=== PATIENT | female | born 1955 | race Caucasian/White ===

== ENCOUNTER 2017-01-02 10:52 | Outpatient (RCR) | payer BC | END 2017-04-02 | disposition home or self-care (01) | LOC: CARD 10:52 | PROVIDERS: ATTEND Nurse Practitioner Family | DX: R01.1 Cardiac murmur, unspecified (principal); R00.2 Palpitations | CPT/HCPCS: 93225; 93226 ==

== ENCOUNTER → 2017-01-02 | Outpatient (CLI) | payer BC ==
[~2017-01-02] MED LIST: CA C1TAB26 PO; CALC1CAP21 PO; CYAN500T2 PO; HYDR-3454 PO; LISI20TA PO; OMEG-12 PO
--- NOTE | 2017-01-03 12:31 | ECHOCARDIOGRAPHY REPORT ---
DATE OF SERVICE: 01/02/2017 REFERRING PHYSICIAN: Dr. Delmi Antonio, [facility] MEASUREMENT: LV end diastolic 3.7. IVS thickness 1.2. LVPW thickness 1.1. Left atrial diameter 3.2. Ejection fraction 70%. FINDINGS: 1. Technical quality is good. 2. The left ventricle is normal in size with mild left ventricular hypertrophy noted diffusely, hyperactive ventricle, estimated ejection fraction 70%. Diastolic dysfunction is suggested by Doppler. 3. The left atrium is normal in size. No clot or thrombus were seen within the left atrium. 4. The right atrium and right ventricle are normal in size. No clot or thrombus were seen within the right side. 5. Mitral valve is normal in morphology with mild mitral regurgitation noted by color Doppler flow. No mitral valve prolapse. No mitral valve stenosis. 6. Aortic valve is calcified, Doppler across the aortic valve estimated the peak gradient across the aortic valve of 15 mmHg, mean gradient of 7.2 mmHg, calculated valve area of 2.6 square cm, no significant aortic valve stenosis was noted. No significant aortic regurgitation. 7. Tricuspid valve is normal in morphology with mild tricuspid regurgitation noted by color Doppler flow. Doppler across the tricuspid valve estimated pulmonary artery pressure of 10+ right atrial pressure. 8. Pulmonic valve is functioning normally. 9. No pericardial effusion. CONCLUSION: 1. Mild left ventricular hypertrophy noted diffusely with hyperactive ventricle, estimated ejection fraction 70%, diastolic dysfunction is suggested by Doppler. 2. Aortic valve sclerosis, no aortic stenosis. 3. Mild mitral and tricuspid regurgitation. 4. Estimated pulmonary artery pressure of 15 to 20 mmHg. Job ID: [id number] DocumentID: [id number] Dictated Date: 01/03/2017 08:05:48 Blender Snuff Date: 01/03/2017 08:57:28 Dictated By: GOPAL BRODERICK MD
== END ==
LOC: CARD 10:48
PROVIDERS: ATTEND Nurse Practitioner Family
DX: R01.1 Cardiac murmur, unspecified (principal); R00.2 Palpitations; I08.3 Combined rheumatic disorders of mitral, aortic and tricuspid valves
CPT/HCPCS: 93306

== ENCOUNTER → 2017-01-06 | Outpatient (CLI) | payer BC ==
--- NOTE | 2017-01-06 10:34 | Diagnostic Imaging Report ---
EXAMINATION: Upper and lower extremity pressure measurements of ankle/brachial index and pulse volume recording at the ankle. INDICATION: Claudication FINDINGS: The ankle/brachial index on the right side is 1.1, (1.1 DP, and 1.1 PT) and on the left is 1.2 (1.2 DP, and 1.1 PT). Pulse volume recording waveforms demonstrate no significant dampening. IMPRESSION: Normal IAN, bilaterally. Dictated by: Dictated on workstation # [id number]
== END ==
LOC: RAD 09:33
PROVIDERS: ATTEND Nurse Practitioner Family
DX: I87.2 Venous insufficiency (chronic) (peripheral) (principal); R01.1 Cardiac murmur, unspecified
CPT/HCPCS: 93922

== ENCOUNTER 2017-05-10 12:09 | Emergency (ER) | payer BC ==
[~2017-05-10] VITALS: Ht 157.5 cm; Wt 81.6 kg
--- OUTSIDE RECORDS SUMMARY | 2017-05-10 12:15 | XMS REPORT ---
Author Author KAYLEE MURNOE Organization [employer] Address Unknown Phone Unavailable Care Team Providers Care Certified Medical Technician Name Role Phone KAYLEE MUNROE CP Unavailable Allergies No Known Allergies Problems Problem Type Condition Code Onset Dates Condition Status Problem Dental caries K02.9 Active Problem Family history of cancer Z80.9 Active Problem Mouth pain K13.79 Active Problem Knee pain, left M25.562 Active Problem Lumbago with sciatica, right side M54.41 Active Problem Apnea, not elsewhere classified R06.81 Active Problem Lumbago with sciatica, left side M54.42 Active Problem Right upper quadrant pain R10.11 Active Problem Family history of diabetes mellitus Z83.3 Active Problem Gastro-esophageal reflux disease without esophagitis K21.9 Active Problem Fall, initial encounter W19.XXXA Active Medications No Known Medications Results No Known Results Summary Purpose [employer] Submission
--- OUTSIDE RECORDS SUMMARY | 2017-05-10 12:15 | XMS REPORT ---
Author Author KAYLEE MUNROE Organization [employer] Address Unknown Phone Unavailable Care Team Providers Care Sneller Hand Name Role Phone KAYLEE MUNROE CP Unavailable Allergies, Adverse Reactions, Alerts Substance Reaction Event Type Sulfamethoxazole-Trimethoprim Info Not Available Drug Allergy Problems Problem Type Condition Code Onset Dates Condition Status Assessment Gastro-esophageal reflux disease without esophagitis K21.9 Active Problem Dental caries K02.9 Active Problem Knee pain, left M25.562 Active Assessment Right upper quadrant pain R10.11 Active Assessment Fall, initial encounter W19.XXXA Active Problem Gastro-esophageal reflux disease without esophagitis K21.9 Active Problem Fall, initial encounter W19.XXXA Active Problem Apnea, not elsewhere classified R06.81 Active Problem Family history of cancer Z80.9 Active Problem Mouth pain K13.79 Active Problem Right upper quadrant pain R10.11 Active Problem Family history of diabetes mellitus Z83.3 Active Medications Medication Code System Code Instructions Start Date End Date Status Dosage Hydrocodone-Acetaminophen [facility] [address]-00 5-325 MG Orally Once a day Apr 19, 2016 Apr 24, 2016 1 tablet as needed Omeprazole [facility] [address]-78 20 mg Orally Once a day Apr 19, 2016 1 capsules Aspir-81 [facility] [address]-00 81 MG Orally Once a day 1 tablet Hair/Skin/Nails [facility] [address] Orally not defined Multi Complete [facility] [address] Orally not defined MetFORMIN HCl ER [facility] 88024822613 500 MG Orally twice a day 1 tablet with meal Calcium + D [facility] [address] 315-200 MG-UNIT Orally Twice a day 1 tablet with meals PredniSONE [facility] [address]-99 20 mg Orally Once a day Apr 19, 2016Apr 1 tablet Vitamin D [facility] [address]-53 1000 UNIT Orally Once a day 5 tablet Procedures Procedure Coding System Code Date Office Visit, Est Pt., Level 3 CPT-4 36262 Apr 19, 2016 X-RAY EXAM OF LOWER SPINE CPT-4 48982 Apr 19, 2016 Vital Signs Date/Time: Apr 19, 2016 Cardiac Monitoring Heart Rate 82 bpm Weight 192.0 lbs Height 62 in BMI 35.11 Index Blood Pressure Diastolic 90 mmHg Blood Pressure Systolic 142 mmHg Results No Known Results Summary Purpose [employer] Submission
--- OUTSIDE RECORDS SUMMARY | 2017-05-10 12:15 | XMS REPORT ---
Author Author MUNROEKAYLEE Melendrez Organization [facility] Address [address] [place] [address] Care Team Providers Care Office Services Manager Name Role Phone MUNROEKAYLEE Melendrez Unavailable PROBLEMS Type Condition ICD9-CM Code GOC29-LT Code Onset Dates Condition Status SNOMED Code Problem Gastroesophageal reflux disease without esophagitis K21.9 Active 915537475 Problem Hyperinsulinemia E16.1 Active 28567664 Problem Acute left-sided low back pain with left-sided sciatica M54.42 Active 286639878 Problem Type 2 diabetes mellitus without complication, without long-term current use of insulin E11.9 Active 041148028 Problem Venous stasis dermatitis of both lower extremities I87.2 Active 19072099 Problem Murmur, cardiac R01.1 Active 90795275 Problem Elevated blood pressure reading without diagnosis of hypertension R03.0 Active 209783304 Problem Claudication I73.9 Active 032195943 Problem Palpitations R00.2 Active 13847285 Problem Mild left ventricular hypertrophy I51.7 Active 45694815 Problem Aortic valve sclerosis I35.8 Active 87320199 Problem Mild mitral regurgitation I34.0 Active 02006852 Problem Mild tricuspid regurgitation I07.1 Active 572780715 Problem Gastro-esophageal reflux disease without esophagitis K21.9 Active 132662554 Problem Apnea, not elsewhere classified R06.81 Active 6438055 Problem Knee pain, left M25.562 Active 22451020 Problem Lumbago with sciatica, left side M54.42 Active 958993713 Problem Dental caries K02.9 Active 82886148 Problem Lumbago with sciatica, right side M54.41 Active 570376092 ALLERGIES Substance Reaction Event Type Date Status Sulfamethoxazole-Trimethoprim Unknown Drug Allergy Aug, Active SOCIAL HISTORY No smoking Hx information available PLAN OF CARE Activity Details Follow Up 3 Months, prn Reason:CHM VITAL SIGNS Height 62 in 2016-09-05 Weight 191.7 lbs 2016-09-05 Temperature 97.6 degrees Fahrenheit 2016-09-05 Heart Rate 90 bpm 2016-09-05 Respiratory Rate 22 2016-09-05 BMI 35.06 kg/m2 2016-09-05 Blood pressure systolic 137 mmHg 2016-09-05 Blood pressure diastolic 91 mmHg 2016-09-05 MEDICATIONS Medication Instructions Dosage Frequency Start Date End Date Duration Status PredniSONE 10 mg Orally Once a day 1 tablet 24h Aug, Aug, 05 days Active Hair/Skin/Nails Active Multi Complete Active Vitamin D 1000 UNIT Orally Once a day 5 tablet 24h Active Aspir-81 81 MG Orally Once a day 1 tablet 24h Active Hydrocodone-Acetaminophen 5-325 MG Orally every 6 hrs PRN 1 tablet as needed May, Aug, 10 days Active Baclofen 10 mg Orally Three times a day 1 tablet with food or milk 8h May, 90 days Active Calcium + D 315-200 MG-UNIT Orally Twice a day 1 tablet with meals 12h Active Omeprazole 20 mg Orally Once a day 1 capsules 24h 90 days Active Azithromycin 250 MG Orally Once a day 2 tablets on the first day, then 1 tablet daily for 4 days 24h Aug, Aug, 5 day(s) Active RESULTS Name Result Date Reference Range A1C (IN HOUSE) 2016-09-05 A1C IN HOUSE 5.6 4.3 - 5.6 % Previous A1c 6.4 Lot [id number] Exp date 06/2018 PROCEDURES Procedure Date Ordered Related Diagnosis Body Site GLYCATED HEMOGLOBIN TEST Sep 05, 2016 Office Visit, Est Pt., Level 4 Sep 05, 2016 IMMUNIZATIONS No Known Immunizations
--- OUTSIDE RECORDS SUMMARY | 2017-05-10 12:15 | XMS REPORT ---
Author Author KAYLEE MUNROE Organization [facility] Address [address] [place] [address] Care Team Providers Care Design Painter Name Role Phone KAYLEE MUNROE Unavailable PROBLEMS Type Condition ICD9-CM Code WVW88-BC Code Onset Dates Condition Status SNOMED Code Problem Knee pain, left M25.562 Active 84177151 Problem Mouth pain K13.79 Active 230658676 Problem Dental caries K02.9 Active 29657179 Problem Apnea, not elsewhere classified R06.81 Active 4644822 Problem Gastro-esophageal reflux disease without esophagitis K21.9 Active 916798531 Problem Family history of diabetes mellitus Z83.3 Active 310891483 Problem Family history of cancer Z80.9 Active 540074499 Problem Fall, initial encounter W19.XXXA Active 2633972 Problem Right upper quadrant pain R10.11 Active 103136205 ALLERGIES Unknown Allergies SOCIAL HISTORY No smoking Hx information available PLAN OF CARE VITAL SIGNS MEDICATIONS Unknown Medications RESULTS No Results PROCEDURES No Known procedures IMMUNIZATIONS No Known Immunizations
--- OUTSIDE RECORDS SUMMARY | 2017-05-10 12:15 | XMS REPORT ---
Author Author KAYLEE MUNROE Organization [employer] Address Unknown Phone Unavailable Care Team Providers Care Heater Installer Name Role Phone KAYLEE MUNROE CP Unavailable Allergies, Adverse Reactions, Alerts Substance Reaction Event Type Sulfamethoxazole-Trimethoprim Info Not Available Drug Allergy Problems Problem Type Condition Code Onset Dates Condition Status Problem Dental caries K02.9 Active Problem Family history of cancer Z80.9 Active Problem Mouth pain K13.79 Active Problem Lumbago with sciatica, right side M54.41 Active Problem Apnea, not elsewhere classified R06.81 Active Problem Lumbago with sciatica, left side M54.42 Active Problem Right upper quadrant pain R10.11 Active Problem Family history of diabetes mellitus Z83.3 Active Problem Gastro-esophageal reflux disease without esophagitis K21.9 Active Problem Fall, initial encounter W19.XXXA Active Assessment Lumbago with sciatica, right side M54.41 Active Assessment Lumbago with sciatica, left side M54.42 Active Problem Knee pain, left M25.562 Active Medications Medication Code System Code Instructions Start Date End Date Status Dosage Aspir-81 [facility] [address]-68 81 MG Orally Once a day 1 tablet Hydrocodone-Acetaminophen [facility] [address]-86 5-325 MG Orally every 6 hrs PRN May 23, 2016 Jun 02, 2016 1 tablet as needed Omeprazole [facility] 48808800291 20 mg Orally Once a day 1 capsules MetFORMIN HCl ER [facility] 99491142848 500 MG Orally twice a day 1 tablet with meal Calcium + D [facility] 520[address] 315-200 MG-UNIT Orally Twice a day 1 tablet with meals Baclofen [facility] [address]-28 10 mg Orally Three times a day May 23, 2016 Jun 22, 2016 1 tablet with food or milk Hair/Skin/Nails [facility] [address]35-[address] Orally not defined Multi Complete [facility] [address] Orally not defined Vitamin D [facility] [address]-92 1000 UNIT Orally Once a day 5 tablet Procedures Procedure Coding System Code Date Office Visit, Est Pt., Level 3 CPT-4 35190 May 23, 2016 Vital Signs Date/Time: May 23, 2016 Cardiac Monitoring Heart Rate 84 bpm Weight 194.6 lbs Height 62 in BMI 35.59 Index Blood Pressure Diastolic 85 mmHg Blood Pressure Systolic 138 mmHg Results No Known Results Summary Purpose [employer] Submission
--- OUTSIDE RECORDS SUMMARY | 2017-05-10 12:15 | XMS REPORT ---
Author Author KAYLEE MUNROE Organization [employer] Address Unknown Phone Unavailable Care Team Providers Care Automotive Shop Foreman Name Role Phone KAYLEE MUNROE CP Unavailable [...] Problem Fall, initial encounter W19.XXXA Active Medications Medication Code System Code Instructions Start Date End Date Status Dosage MetFORMIN HCl ER [facility] 04379203128 500 MG Orally twice a day 1 tablet with meal Omeprazole [facility] 00702030967 20 mg Orally Once a day 1 capsules Results No Known Results Summary Purpose [employer] Submission
[2017-05-10] MEDS ORDERED: OMEP20CA12 (13:19)
[2017-05-10] MEDS ORDERED: PRD20T (13:19)
[2017-05-10] MEDS ORDERED: JANUVIA (13:19)
[2017-05-10] MEDS ORDERED: METF500T4 (13:19)
[2017-05-10] MEDS ORDERED: LISI-556 (13:19)
[2017-05-10] MEDS ORDERED: HYDR-3816 (13:19)
--- NOTE | 2017-05-10 13:26 | ED Neurological Problem ---
General Chief Complaint: Dizziness/Syncope Stated Complaint: DIZZY, NASUEA Nursing Triage Note: ARRIVED VIA AMB TO ROOM 05 WITH A UNSTEADY GAIT. COMPLAINS OF DIZZINESS STARTING YESTERDAY AFTER WORK. STATES SHE HAS BEEN INC OF URINE X1 TODAY. WENT TO [facility] THIS AM WHO PRESCRIBED HER PREDNISONE AND MECLAZINE WHICH SHE HAS NOT FILLED YET. Nursing Sepsis Screen: No Definite Risk Source: patient Exam Limitations: no limitations History of Present Illness Time seen by provider: 13:26 Initial Comments 62-year-old female patient presents to the emergency department complaints of vertigo/dizziness beginning yesterday while at work. Patient reports difficulty walking due to the vertigo. Does report being incontinent of urine 1 today. Patient has posterior headache which she states is "not really that bad." Patient reports having a similar episode "a few months ago" and "a couple of weeks ago." Symptoms worse with movement and opening her eyes. Reports N/V beginning yesterday. Patient was seen at the [facility] walk-in clinic earlier today by GILSON Cohen when necessary and was prescribed prednisone and Antivert. Patient did not fill the medications, because "they were out of the meclizine." States she decided to come to the emergency department to be evaluated. Location Injury Occurred: denies known injury Timing/Duration: episodic, other (onset yesterday afternoon while at work) Associated Symptoms: No confusion, No fatigue, No fever/chills, No insomnia, No loss of consciousness, No muscle spasms, nausea/vomiting, No numbness in legs /feet, No paresthesia, No ringing in ears, No seizures, sleepy, No slurred speech, No tingling in legs/feet, trouble walking, No vision changes, No weakness Allergies and Home Medications Allergies Coded Allergies: No Known Drug Allergies (Verified , 11/10/07) Home Medications Hydrocodone/Acetaminophen 1 Each Tablet, (Reported) Lisinopril 20 Mg Tablet, 20 MG PO DAILY, (Reported) Lisinopril 5 Mg Tablet, (Reported) Metformin HCl 500 Mg Tablet, (Reported) Omeprazole 20 Mg Capsule., (Reported) Ondansetron 8 Mg Tab.rapdis, 8 MG PO Q6H PRN for NAUSEA/VOMITING-1ST LINE, #10 Ref 0 Prescribed by: KATHRYN VEGA on 05/10/17 1640 Prednisone 20 Mg Tab, (Reported) [Januvia] , (Reported) Constitutional: No chills, No diaphoresis, dizziness (dizziness/vertigo), No fever, No malaise Eyes: Denies Blurred Vision, Denies Decreased Acuity, Denies Foreign Body Sensation, Denies Inflammation, Denies Pain, Denies Photophobia Ears, Nose, Mouth, Throat: denies ear pain, denies ear discharge, denies nose pain, denies nose discharge, denies mouth pain, denies throat pain Respiratory: No cough, No short of breath, No wheezing Cardiovascular: No chest pain, No palpitations, No syncope Gastrointestinal: No abdominal pain, No constipation, No diarrhea, loss of appetite, nausea, vomiting Genitourinary: no symptoms reported Musculoskeletal: no symptoms reported Skin: no symptoms reported Psychiatric/Neurological: Denies Cognitive Dysfunction, Headache, Denies Numbness, Denies [place] Seizures, Denies Tingling, Denies Tonic Clonic Seizures, Denies Unable to Move Lower Ext, Denies Unable to Move Upper Ext, Denies Weakness Endocrine: No Symptoms Reported All Other Systems Reviewed Negative Unless Noted: Yes (Negative excepted noted.) Past Jlbolhm-Xfoxfq-Sbstzi Hx Patient Social History Alcohol Use: Denies Use Recreational Drug Use: No Smoking Status: Never a Smoker Recent Foreign Travel: No Contact w/Someone Who Travel: No Recent Infectious Disease Expo: No Recent Hopitalizations: No Seasonal Allergies Seasonal Allergies: Yes Surgeries History of Surgeries: Yes (BLADDER SLING) Surgeries: Appendectomy, Hysterectomy Respiratory History of Respiratory Disorde: No Cardiovascular History of Cardiac Disorders: No Neurological History of Neurological Disord: No Reproductive System Hx Reproductive Disorders: No Genitourinary History of Genitourinary Disor: No Gastrointestinal History of Gastrointestinal Di: No Musculoskeletal History of Musculoskeletal Dis: Yes (SCIATIC PAIN IN BACK AT INTERVALS) Endocrine History of Endocrine Disorders: Yes Endocrine Disorders: Diabetes, Non-Insulin dep HEENT History of HEENT Disorders: No Cancer History of Cancer: No Psychosocial History of Psychiatric Problem: No Integumentary History of Skin or Integumenta: No Blood Transfusions History of Blood Disorders: No Reviewed Nursing Assessment Reviewed/Agree w Nursing PMH: Yes Family Medical History Significant Family History: No Pertinent Family Hx Physical Exam Vital Signs Vital Sign - Last 12Hours 05/10/17 12:55 Temp 95.5 Pulse 72 Resp 18 B/P (MAP) 162/85 Pulse Ox 98 Capillary Refill : Less Than 3 Seconds General Appearance: WD/WN, no apparent distress HEENT: PERRL/EOMI, normal ENT inspection, TMs normal, pharynx normal Neck: full range of motion, supple, normal inspection, No carotid bruit, tender lateral (TTP bilaterally at the base of the skull.), No tender midline Respiratory: lungs clear, normal breath sounds, no respiratory distress, no accessory muscle use Cardiovascular: normal peripheral pulses, regular rate, rhythm, no edema, no murmur Peripheral Pulses: 2+ Carotid (R), 2+ Carotid (L), 2+ Dorsalis Pedis (R), 2+ Left Dors-Pedis (L), 2+ Radial Pulses (R), 2+ Radial Pulses (L) Gastrointestinal: normal bowel sounds, non tender, soft, no organomegaly, No distended Back: normal inspection Extremities: no pedal edema, no calf tenderness, normal capillary refill Neurologic/Psychiatric: painter spring II-XII nml as tested, alert, normal mood/affect, oriented x 3, abnormal gait (unsteady gait), No aphasia, No facial droop, No motor weakness, No sensory deficit Crainal Nerves: normal hearing, normal speech, PERRL, No facial asymmetry, No facial droop, No facial paresthesias, No facial weakness, No gaze palsy Coordination/Gait: normal finger to nose, abnormal gait (unsteady gait, but patient is able to ambulate without assistance.), other ((+) supine lateral head turn test), positive Romberg's sign (patient immediatley begins moving in a circular pattern immediately after closing her eyes).) Motor/Sensory: no motor deficit, no sensory deficit, no pronator drift Skin: normal color, warm/dry Progress/Results/Core Measures Results/Orders Lab Results Laboratory Tests Test 05/10/17 13:17 05/10/17 13:30 05/10/17 14:02 Range/Units Glucometer 127 H 70-110 MG/DL White Blood Count 5.9 4.3-11.0 10^3/uL Red Blood Count 5.18 4.35-5.85 10^6/uL Hemoglobin 15.0 11.5-16.0 G/DL Hematocrit 44 35-52 % Mean Corpuscular Volume 85 80-99 FL Mean Corpuscular Hemoglobin 29 25-34 PG Mean Corpuscular Hemoglobin Concent 34 32-36 G/DL Red Cell Distribution Width 12.9 10.0-14.5 % Platelet Count 175 130-400 10^3/uL Mean Platelet Volume 11.5 H 7.4-10.4 FL Neutrophils (%) (Auto) 79 H 42-75 % Lymphocytes (%) (Auto) 16 12-44 % Monocytes (%) (Auto) 4 0-12 % Eosinophils (%) (Auto) 0 0-10 % Basophils (%) (Auto) 0 0-10 % Neutrophils # (Auto) 4.7 1.8-7.8 X 10^3 Lymphocytes # (Auto) 1.0 1.0-4.0 X 10^3 Monocytes # (Auto) 0.2 0.0-1.0 X 10^3 Eosinophils # (Auto) 0.0 0.0-0.3 10^3/uL Basophils # (Auto) 0.0 0.0-0.1 10^3/uL Sodium Level 141 135-145 MMOL/L Potassium Level 3.9 3.6-5.0 MMOL/L Chloride Level 106 98-107 MMOL/L Carbon Dioxide Level 22 21-32 MMOL/L Anion Gap 13 5-14 MMOL/L Blood Urea Nitrogen 18 7-18 MG/DL Creatinine 0.77 0.60-1.30 MG/DL Estimat Glomerular Filtration Rate > 60 BUN/Creatinine Ratio 23 Glucose Level 129 H 70-105 MG/DL Calcium Level 9.9 8.5-10.1 MG/DL Total Bilirubin 0.4 0.1-1.0 MG/DL Aspartate Amino Transf (AST/SGOT) 34 5-34 U/L Alanine Aminotransferase (ALT/SGPT) 46 0-55 U/L Alkaline Phosphatase 77 40-136 U/L Troponin I < 0.30 <0.30 NG/ML Total Protein 8.0 6.4-8.2 GM/DL Albumin 4.4 3.2-4.5 GM/DL TSH [place] Testing 0.37 0.35-4.94 UIU/ML Serum Alcohol < 10 <10 MG/DL Urine Color YELLOW Urine Clarity VERY CLOUDY H Urine pH 7 5-9 Urine Specific [place] 1.015 L 1.016-1.022 Urine Protein 1+ H NEGATIVE Urine Glucose (UA) NEGATIVE NEGATIVE Urine Ketones 3+ H NEGATIVE Urine Nitrite NEGATIVE NEGATIVE Urine Bilirubin NEGATIVE NEGATIVE Urine Urobilinogen NORMAL NORMAL MG/DL Urine Leukocyte Esterase 1+ H NEGATIVE Urine RBC (Auto) NEGATIVE NEGATIVE Urine RBC NONE /HPF Urine WBC 0-2 /HPF Urine Crystals NONE /LPF Urine Bacteria FEW H /HPF Urine Casts NONE /LPF Urine Mucus SMALL H /LPF Urine Culture Indicated NO Urine Opiates Screen NEGATIVE NEGATIVE Urine Oxycodone Screen NEGATIVE NEGATIVE Urine Methadone Screen NEGATIVE NEGATIVE Urine Propoxyphene Screen NEGATIVE NEGATIVE Urine Barbiturates Screen NEGATIVE NEGATIVE Ur Tricyclic Antidepressants Screen NEGATIVE NEGATIVE Urine Phencyclidine Screen NEGATIVE NEGATIVE Urine Amphetamines Screen NEGATIVE NEGATIVE Urine Methamphetamines Screen NEGATIVE NEGATIVE Urine Benzodiazepines Screen NEGATIVE NEGATIVE Urine Cocaine Screen NEGATIVE NEGATIVE Urine Cannabinoids Screen POSITIVE H NEGATIVE My Orders Orders - KATHRYN VEGA Alcohol (05/10/17 13:32) Cbc With Automated Diff (05/10/17 13:32) Comprehensive Metabolic Panel (05/10/17 13:32) Drug Screen Stat (Urine) (05/10/17 13:32) Thyroid Analyzer (05/10/17 13:32) Troponin I (05/10/17 13:32) Ua Culture If Indicated (05/10/17 13:32) Accucheck Stat ONCE (05/10/17 13:32) Saline Lock/Iv-Start (05/10/17 13:32) Ekg Tracing (05/10/17 13:32) Monitor-Rhythm Ecg Trace Only (05/10/17 13:32) Orthostatic Vital Signs (05/10/17 13:47) Ct Head Wo (05/10/17 13:47) Ondansetron Injection (Zofran Injectio (05/10/17 14:00) Ns Iv 1000 Ml (Sodium Chloride 0.9%) (05/10/17 13:47) Meclizine Tablet (Antivert Tablet) (05/10/17 14:00) Chest 1 View, Ap/Pa Only (05/10/17 13:49) Chest 1 View, Ap/Pa Only (05/10/17 ) Ct Head Wo (05/10/17 ) Ct Angio Chest W (05/10/17 14:53) Mri Brain W/O Contrast (05/10/17 14:53) Ns Iv 1000 Ml (Sodium Chloride 0.9%) (05/10/17 14:53) Iohexol Injection (Omnipaque 350 Mg/Ml 1 (05/10/17 15:30) Ns (Ivpb) (Sodium Chloride 0.9% Ivpb Bag (05/10/17 15:30) Pharmacy Communication (Pharmacy Communi (05/10/17 15:16) Iohexol Injection (Omnipaque 350 Mg/Ml 1 (05/10/17 15:30) Meclizine Tablet (Antivert Tablet) (05/10/17 17:00) Medications Given in ED Vital Signs/I&O Vital Sign - Last 12Hours 05/10/17 05/10/17 05/10/17 05/10/17 12:55 15:24 15:26 15:27 Temp 95.5 Pulse 72 73 72 82 Resp 18 B/P (MAP) 162/85 Pulse Ox 98 05/10/17 17:29 Pulse 82 Resp 18 Pulse Ox 98 Blood Pressure Mean: 110 Point of Care Testing Finger Stick Blood Glucose: 127 ECG Initial ECG Impression Date: May 10, 2017 Initial ECG Impression Time: 13:10 Initial ECG Rate: 65 Initial ECG Rhythm: Normal Sinus Initial ECG Comparisson: Unchanged Comment Sinus rhythm. No STEMI or arrhythmia noted. EKG reviewed by Dr. Blanton. Diagnostic Imaging Diagonstic Imaging: Xray Plain Films/CT/US/NM/MRI: chest Comments FINDINGS: Single view of the chest demonstrates clear lungs bilaterally. The heart is normal. No pneumothorax. The osseous structures normal. IMPRESSION: Negative chest. Dictated by: Dictated on workstation # [id number] Reviewed: Reviewed by Me (radiology report reviewed by me) Diagonstic Imaging: CT Plain Films/CT/US/NM/MRI: head Comments FINDINGS: Ventricles normal in size, shape and position. There is no midline shift or mass effect. There is no hemorrhage or evidence for acute ischemia. No cerebral edema identified. The bony calvarium, visualized paranasal sinuses and mastoids are normal. IMPRESSION: Negative CT head. Dictated by: Dictated on workstation # [id number] Reviewed: Reviewed by Me (radiology report reviewed by me) Diagonstic Imaging: CT Plain Films/CT/US/NM/MRI: chest (angio chest) Comments FINDINGS: Single view of the chest demonstrates clear lungs bilaterally. The heart is normal. No pneumothorax. The osseous structures normal. IMPRESSION: Negative chest. Dictated by: Dictated on workstation # [id number] Reviewed: Reviewed by Me (radiology report reviewed by me) Diagonstic Imaging: MRI Plain Films/CT/US/NM/MRI: head Comments FINDINGS: Ventricles normal in size, shape and position. There is no midline shift or mass effect. There is no hemorrhage or evidence of acute ischemia. There is no significant volume loss or chronic ischemic changes. There is no mass. Vascular flow voids have a normal appearance. No extra-axial fluid collection is seen. Craniocervical junction anatomy is grossly normal. IMPRESSION: 1. Negative MRI of the brain. Please note there is motion artifact on several sequences. No obvious hemorrhage or acute ischemia identified. 2. No mass identified. Dictated by: Dictated on workstation # [id number] Reviewed: Reviewed by Me (radiology report reviewed by me) Departure Communication (Admissions) Progress Notes All laboratory and diagnostic findings were discussed with the patient. Patient did continue to complain of vertigo following liter of normal saline and Antivert 25 mg. Due to posterior headache, vertigo, and exam findings MRI of the brain was obtained. Patient was given a second liter of normal saline and 25 mg of meclizine with improvement in symptoms. Romberg test negative. MRI results discussed with the patient. Plan for discharge to home. All return precautions were discussed with the patient as described in the discharge instructions of this report. Patient voices understanding and agrees with the treatment plan. Patient case discussed with Dr. Blanton, he agrees with the plan of care. Patient ambulated from the emergency department without difficulty. Impression Impression: Primary Impression: Volume depletion Additional Impression: Vertigo Disposition: 01 HOME, SELF-CARE Condition: Improved Departure-Patient Inst. Decision time for Depature: 16:38 Referrals: [facility] (PCP) Primary Care Physician KAYLEE MUNROE APRN (Family) Primary Care Physician Patient Instructions: Dehydration, Adult (DC), Vertigo (a Type of Dizziness) ( DC) Add. Discharge Instructions: All discharge instructions reviewed with patient and/or family. Voiced understanding. Medications as instructed. Take prednisone and Antivert as prescribed by Sabino Crane APRN. Drink plenty of fluids. Avoid the heat for 2-3 days. Follow-up with your primary care provider as an outpatient early this week for recheck. Call Friday for appointment time. Return to the emergency department for worsened dizziness, vertigo, headache, changes in vision, changes in behavior, slurred speech, weakness, numbness, shortness of air, seizure, chest pain, vomiting, inability to urinate, decreased urination, or any other concerns. Scripts Ondansetron (Ondansetron Odt) 8 Mg Tab.rapdis 8 MG PO Q6H Y for NAUSEA/VOMITING-1ST LINE, #10 TAB 0 Refills Prov: KATHRYN VEGA 05/10/17 KATHRYN VEGA May 10, 2017 13:26
[2017-05-10] MEDS ORDERED: NS IV 1000 ML 1,000 ML IV ONE ×2 (13:47→14:53)
[2017-05-10 13:50] LABS: BASOPHILS % (AUTO) 0 % (0-10); EOSINOPHILS % (AUTO) 0 % (0-10); LYMPHOCYTES % (AUTO) 16 % (12-44); MEAN CORPUSCULAR HEMOGLOBIN 29 PG (25-34); MEAN CORPUSCULAR HGB CONC 34 G/DL (32-36); MEAN CORPUSCULAR VOLUME 85 FL (80-99); MEAN PLATELET VOLUME 11.5 FL (7.4-10.4); MONOCYTES # (AUTO) 0.2 X 10^3 (0.0-1.0); MONOCYTES % (AUTO) 4 % (0-12); NEUTROPHILS # (AUTO) 4.7 X 10^3 (1.8-7.8); NEUTROPHILS % (AUTO) 79 % (42-75); PLATELET COUNT 175 10^3/uL (130-400); RED BLOOD COUNT 5.18 10^6/uL (4.35-5.85); RED CELL DISTRIBUTION WIDTH 12.9 % (10.0-14.5); WHITE BLOOD COUNT 5.9 10^3/uL (4.3-11.0)
[2017-05-10] MEDS ORDERED: ONDANSETRON 4 MG/2 ML (SDV) Z0FRAN IVP ONE (14:00)
[2017-05-10] MEDS ORDERED: MECLIZINE 25 MG (ANTIVERT) TAB PO ONE ×2 (14:00→17:00)
[2017-05-10 14:08] LABS: ALANINE AMINOTRANSFERASE 46 U/L (0-55); ALBUMIN 4.4 GM/DL (3.2-4.5); ALCOHOL < 10 MG/DL (<10); ANION GAP 13 MMOL/L (5-14); ASPARTATE AMINO TRANSFERASE 34 U/L (5-34); BILIRUBIN,TOTAL 0.4 MG/DL (0.1-1.0); BLOOD UREA NITROGEN 18 MG/DL (7-18); BUN/CREATININE RATIO 23; CALCIUM 9.9 MG/DL (8.5-10.1); CARBON DIOXIDE 22 MMOL/L (21-32); CHLORIDE 106 MMOL/L (98-107); CREATININE SERUM 0.77 MG/DL (0.60-1.30); GFR ESTIMATED > 60; GLUCOSE 129 MG/DL (70-105); POTASSIUM 3.9 MMOL/L (3.6-5.0); SODIUM 141 MMOL/L (135-145)
[2017-05-10 14:10] LABS: BILIRUBIN,URINE NEGATIVE (NEGATIVE); KETONES,URINE 3+ (NEGATIVE); LEUKOCYTE ESTERASE ,URINE 1+ (NEGATIVE); NITRITE,URINE NEGATIVE (NEGATIVE); PH,URINE 7 (5-9); PROTEIN,URINE 1+ (NEGATIVE); UROBILINOGEN,URINE NORMAL (NORMAL)
--- NOTE | 2017-05-10 14:19 | Diagnostic Imaging Report ---
PROCEDURE: CT head without contrast. TECHNIQUE: Multiple contiguous axial images were obtained through the brain without the use of intravenous contrast. INDICATION: Dizziness, blurry vision before fall. COMPARISON: 04/26/2016 FINDINGS: There are diffuse atrophic changes with prominence of the ventricles and sulci. There are scattered areas of decreased attenuation suggestive of chronic small vessel ischemic disease. There is otherwise normal rick-white differentiation. No abnormal areas of attenuation to suggest edema from ischemia. There is no midline shift or mass effect. No evidence for acute intracranial hemorrhage or abnormal extra-axial fluid collection. Bony calvarium is intact. Paranasal sinuses are clear. Mastoid air cells also appear clear. IMPRESSION: 1. No CT evidence for acute intracranial abnormality. 2. Age-related atrophic changes with changes of small vessel ischemic disease. Dictated by: Dictated on workstation # [id number]
--- NOTE | 2017-05-10 14:26 | Diagnostic Imaging Report ---
INDICATION: Dizziness, blurry vision today before fall. TECHNIQUE: Single view chest 2:13 p.m. CORRELATION STUDY: 01/26/2013. FINDINGS: Heart size is enlarged. There is presence of pulmonary vascular congestion. Findings do appear to be changed from prior study. Bilateral perihilar infiltrates versus edema are present. More peripherally, lung goff generally clear. No pneumothorax. No displaced fracture. The right humeral head, however, is slightly inferior in position to the glenoid. IMPRESSION: 1. Findings suggestive of congestive heart failure or pulmonary vascular congestion appearing changed from prior study. Dictated on workstation # [id number]
[2017-05-10 14:28] LABS: TROPONIN I < 0.30 NG/ML (<0.30)
[2017-05-10 14:43] LABS: WBC,URINE 0-2 /HPF
--- NOTE | 2017-05-10 15:01 | Diagnostic Imaging Report ---
PROCEDURE: CT head without contrast. TECHNIQUE: Multiple contiguous axial images were obtained through the brain without the use of intravenous contrast. INDICATION: Dizziness, vertigo, nausea, vomiting. COMPARISON: 05/06/2016. FINDINGS: Ventricles normal in size, shape and position. There is no midline shift or mass effect. There is no hemorrhage or evidence for acute ischemia. No cerebral edema identified. The bony calvarium, visualized paranasal sinuses and mastoids are normal. IMPRESSION: Negative CT head. Dictated by: Dictated on workstation # [id number]
--- NOTE | 2017-05-10 15:23 | Diagnostic Imaging Report ---
INDICATION: Hypoxia. COMPARISON: 01/26/2013. FINDINGS: Single view of the chest demonstrates clear lungs bilaterally. The heart is normal. No pneumothorax. The osseous structures normal. IMPRESSION: Negative chest. Dictated by: Dictated on workstation # [id number]
[2017-05-10] MEDS ORDERED: IOHEXOL 350 MG/ML 150 ML (OMNIPAQUE 350) VIAL IV ONE (15:30)
[2017-05-10] MEDS ORDERED: NS 100 ML (IVPB) BAG IV ONE (15:30)
[2017-05-10] MEDS ORDERED: IOHEXOL 350 MG/ML 100 ML (OMNIPAQUE 350) VIAL IV ONE (15:30)
--- NOTE | 2017-05-10 15:46 | Diagnostic Imaging Report ---
PROCEDURE: CT angiography of the chest with contrast. TECHNIQUE: Multiple contiguous axial images were obtained through the chest after uneventful bolus administration of intravenous contrast. Reconstructed CTA MIP acquisitions were also performed. INDICATION: Dizziness, headache, hypoxia. COMPARISON: None. FINDINGS: The heart size is normal. There is no pericardial effusion. The course and caliber of the thoracic aorta is unremarkable. Pulmonary arteries are grossly normal. No embolism seen. Central airways are normal. There is minimal dependent atelectasis in both lung bases. There is a small hiatal hernia. There is no focal infiltrate, effusion or pneumothorax. Bony structures are normal. Upper abdominal solid organs are grossly unremarkable. There are a few subcentimeter retroperitoneal lymph nodes partially visualized. IMPRESSION: 1. No pulmonary embolism or aortic pathology. 2. Not mentioned above, subcentimeter, likely reactive small hilar lymph nodes. 3. Dependent atelectasis. 4. Hiatal hernia. Dictated by: Dictated on workstation # [id number]
--- NOTE | 2017-05-10 16:02 | Diagnostic Imaging Report ---
PROCEDURE: MR imaging of the brain without contrast. TECHNIQUE: Multiplanar, multisequence MR imaging of the brain was performed without contrast. INDICATION: Dizzy spells. Nausea. COMPARISON: None. FINDINGS: Ventricles normal in size, shape and position. There is no midline shift or mass effect. There is no hemorrhage or evidence of acute ischemia. There is no significant volume loss or chronic ischemic changes. There is no mass. Vascular flow voids have a normal appearance. No extra-axial fluid collection is seen. Craniocervical junction anatomy is grossly normal. IMPRESSION: 1. Negative MRI of the brain. Please note there is motion artifact on several sequences. No obvious hemorrhage or acute ischemia identified. 2. No mass identified. Dictated by: Dictated on workstation # [id number]
[2017-05-10] MEDS ORDERED: ONDA8TAB13 PO (16:40)
[2017-05-10 17:29] VITALS: BP 158/82
== END 2017-05-10 17:27 | disposition home or self-care (01) ==
LOC: EDUNIT# 12:09 → ER 12:11
DX: E86.9 Volume depletion, unspecified (principal); E11.9 Type 2 diabetes mellitus without complications; Z79.84 Long term (current) use of oral hypoglycemic drugs; Z90.49 Acquired absence of other specified parts of digestive tract; Z90.710 Acquired absence of both cervix and uterus
CPT/HCPCS: 36415; 70450; 70551; 71010; 71275; 80053; 80306; 80320; 81000; 82962; 84443; 84484; 85025; 93005; 93041; 96361; 96374

== ENCOUNTER → 2021-01-01 | Outpatient (CLI) | payer BC, MEDICARE ==
[~2021-01-01] MED LIST changes: +HYDR-34; +JANUVIA; +LISI-729; +METF-397; +OMEP20CA18; +ONDA8TAB13 PO; +PRD20T
== END ==
LOC: CARD 14:30
PROVIDERS: ATTEND Physician Assistant
DX: I10 Essential (primary) hypertension (principal); I35.0 Nonrheumatic aortic (valve) stenosis; I25.10 Atherosclerotic heart disease of native coronary artery without angina pectoris
CPT/HCPCS: 93306